=== PATIENT | female | born 1945 | race American Indian/Alaskan Native ===

== ENCOUNTER → 2017-12-08 14:18 | Outpatient (CLI) | payer MEDICARE, OTHER, SELFPAY ==
[2017-12-08 15:03] LABS: Hematocrit 30.3 % (36-46); Hemoglobin 10.2 g/dL (12.0-16.0)
[2017-12-08 15:55] LABS: HEMOLYSIS < 15 (0-50); Iron 66 ug/dL (37-170)
[2017-12-08 16:01] LABS: BUN Creatinine Ratio 13.8 (6-22); Blood Urea Nitrogen 18 mg/dL (7-17); Calcium 8.7 mg/dL (8.4-10.2); Carbon Dioxide 21 mmol/L (22-32); Chloride 106 mmol/L (98-107); Estimated Glomerular Filt Rate 40.3 mL/min (>60); Glucose 131 mg/dL (80-110); HEMOLYSIS < 15 (0-50); Potassium 4.5 mmol/L (3.4-5.1); Sodium 136 mmol/L (137-145)
[2017-12-08 16:05] LABS: Percent Iron Saturation 21 % (15-50); Total Iron Binding Capacity 308 ug/mL (265-497); Transferrin 250 mg/dL (206-381)
[2017-12-08 16:11] LABS: Creatinine Urine Random 55.7 mg/dL
[2017-12-08 16:30] LABS: Protein (Total) Urine Random 308 mg/dL (0-12); Protein Creatinine Ratio Urine 5.52 GRAM/24H
[2017-12-08 16:31] LABS: Ferritin 10.4 ng/mL (11.1-264)
[2017-12-10 13:34] LABS: Parathyroid Hormone Int 55 pg/mL (14-64)
== END ==
PROVIDERS: PCP Family Medicine; Visit Provider Student in an Organized Health Care Education/Training Program
DX: N05.9 Unspecified nephritic syndrome with unspecified morphologic changes (principal); D50.0 Iron deficiency anemia secondary to blood loss (chronic); D64.9 Anemia, unspecified; D60.9 Acquired pure red cell aplasia, unspecified; N25.81 Secondary hyperparathyroidism of renal origin; E87.1 Hypo-osmolality and hyponatremia
CPT/HCPCS: 36415; 80048; 82570; 82728; 83540; 83550; 83970; 84156; 85014; 85018

== ENCOUNTER → 2018-04-08 10:18 | Outpatient (CLI) | payer MEDICARE, OTHER, SELFPAY ==
[2018-04-08 10:41] LABS: Hematocrit 31.4 % (36-46); Hemoglobin 10.5 g/dL (12.0-16.0)
[2018-04-08 11:05] LABS: BUN Creatinine Ratio 10.7 (6-22); Blood Urea Nitrogen 15 mg/dL (7-17); Calcium 9.2 mg/dL (8.4-10.2); Carbon Dioxide 29 mmol/L (22-32); Chloride 105 mmol/L (98-107); Glucose 156 mg/dL (80-110); HEMOLYSIS < 15 (0-50); Potassium 4.4 mmol/L (3.4-5.1); Sodium 140 mmol/L (137-145)
[2018-04-08 11:12] LABS: Creatinine Urine Random 112.6 mg/dL; HEMOLYSIS < 15 (0-50); Iron 22 ug/dL (37-170)
[2018-04-08 11:22] LABS: Percent Iron Saturation 7 % (15-50); Protein (Total) Urine Random 261 mg/dL (0-12); Protein Creatinine Ratio Urine 2.31 GRAM/24H; Total Iron Binding Capacity 310 ug/dL (265-497); Transferrin 267 mg/dL (206-381)
[2018-04-08 11:36] LABS: Ferritin 19.6 ng/mL (11.1-264)
== END ==
PROVIDERS: PCP Family Medicine; Visit Provider Physician Assistant
DX: E11.22 Type 2 diabetes mellitus with diabetic chronic kidney disease (principal); N18.3 Chronic kidney disease, stage 3 (moderate)
CPT/HCPCS: 36415; 80048; 82570; 82728; 83540; 83550; 84156; 85014; 85018

== ENCOUNTER 2018-06-14 22:44 | Emergency (ER) | payer MEDICARE, MEDICAID, OTHER, SELFPAY ==
--- NOTE | 2018-06-14 22:45 | DI.RAD.S_ITS ---
PROCEDURE: XR CHEST 1V INDICATIONS: found down, altered mental status TECHNIQUE: One view of the chest was acquired. COMPARISON: [facility], , CHEST 1 VIEW, 10/30/2014, 6:23. FINDINGS: Surgical changes and devices: None. Lungs and pleura: No pleural effusions or pneumothorax. Increased opacity in right infrahilar region is seen suggestive of small infrahilar infiltrate/atelectasis. Mediastinum: Mediastinal contours appear normal. Heart size is enlarged. Bones and chest wall: No suspicious bony lesions. Overlying soft tissues appear unremarkable. IMPRESSION: Small right infrahilar infiltrate/atelectasis. Dictated by: Jeovanny Luevano M.D. on 06/15/2018 at 8:59 Approved by: Jeovanny Luevano M.D. on 06/15/2018 at 9:00
--- NOTE | 2018-06-14 22:45 | DI.CT.S_ITS ---
PROCEDURE: CT HEAD/BRAIN WO CON INDICATIONS: altered mental status, found down TECHNIQUE: Noncontrast 4.5 mm thick angled axial sections acquired from the foramen magnum to the vertex, with coronal and sagittal reformats. For radiation dose reduction, the following was used: automated exposure control, adjustment of mA and/or kV according to patient size. COMPARISON: [facility], CT, HEAD WITHOUT CONTRAST, 03/11/2016, 13:21. FINDINGS: Image quality: Excellent. CSF spaces: Basal cisterns are patent. No extra-axial fluid collections. The ventricles are symmetric in size and shape. Brain: There is a 4.3 x 2.4 x 3.1 cm acute intraparenchymal hemorrhage involving the right putamen/right stewart radiata. There is mild local mass effect associated with the acute bleed with minimal, approximately 1-2 mm of [id number] midline shift. There is cerebral volume loss for age, with resultant ventricular and sulcal prominence. There are periventricular and deep white matter chronic small vessel ischemic changes. There is intracranial internal carotid artery and vertebral artery atherosclerosis. Skull and face: Calvarium and visualized facial bones appear intact, without suspicious lesions. Sinuses: Mucosal thickening noted throughout the paranasal sinuses. Scattered air-fluid levels noted in the paranasal sinuses. mastoids are clear. IMPRESSION: 1. 4.3 x 2.4 x 3.1 cm acute parenchymal bleed involving the right putamen/stewart radiata. 2. Mild local mass effect associated with the right-sided parenchymal hematoma with minimal, approximately 1-2 mm of right to left midline shift. 3. Pansinusitis. 4. Critical test results telephoned to Dr. Wallace on 06/14/2018 at 1101 hrs. PST. Dictated by: Philomena Magana MD, PhD on 06/15/2018 at 7:18 Approved by: Philomena Magana MD, PhD on 06/15/2018 at 7:21
[2018-06-14 22:52] VITALS: BP 165/93; PULSE 122; RESP 18; TEMP 36.1; O2SAT 100
[2018-06-14 22:54] LABS: Add Manual Diff / Slide Review NO; Basophils Percent Auto 0.6 % (0-2); Eosinophils Percent Auto 0.1 % (2-4); Hematocrit 32.3 % (36-46); Hemoglobin 10.8 g/dL (12.0-16.0); Mean Corpuscular HGB Conc 33.5 % (30-36); Mean Corpuscular Volume 86.5 fL (80-100); Monocytes Percent Auto 4.2 % (3-14); Neutrophils Absolute Auto 10000 /uL (3000-5900); Neutrophils Percent Auto 85.1 % (50-75); Platelet Count 313 X10^3/uL (150-400); Red Blood Cell Count 3.74 X10^6/uL (4.0-5.2); Red Cell Distribution Width 13.1 % (11.6-14.8); White Blood Cell Count 11.8 X10^3/uL (4.5-11.0)
[2018-06-14] MEDS: ETOMIDATE 2 MG/ML VIAL 10 MG IV (22:55)
[2018-06-14 23:00] LABS: INR 0.9 (0.9-1.3); Prothrombin Time 10.3 SECONDS (10.1-12.7)
[2018-06-14] MEDS: PROPOFOL 1,000 MG/100 ML VIAL 1.56 MG IV (23:00)
[2018-06-14 23:03] LABS: PTT Partial Thromboplastin Tim 32 SECONDS (26.4-36.2)
[2018-06-14 23:05] LABS: Alanine Aminotransferase 19 IU/L (9-52); Albumin 4.2 g/dL (3.5-5.0); Albumin Globulin Ratio 1.4 (1.0-2.8); Alkaline Phosphatase 74 U/L (38-126); Aspartate Aminotransferase 29 IU/L (14-36); BUN Creatinine Ratio 13.1 (6-22); Bilirubin Total 0.3 mg/dL (0.2-1.3); Blood Urea Nitrogen 17 mg/dL (7-17); Calcium 8.8 mg/dL (8.4-10.2); Carbon Dioxide 16 mmol/L (22-32); Chloride 99 mmol/L (98-107); Estimated Glomerular Filt Rate 40.3 mL/min (>60); Ethanol (ETOH) 44 mg/dL; Globulin 2.9 g/dL (1.7-4.1); Glucose 150 mg/dL (80-110); HEMOLYSIS 16 (0-50); Potassium 3.7 mmol/L (3.4-5.1); Sodium 135 mmol/L (137-145); Total Protein 7.1 g/dL (6.3-8.2)
[2018-06-14 23:10] VITALS: BP 176/85; PULSE 127; RESP 12; O2SAT 100
--- NOTE | 2018-06-14 23:11 | PC.NURSE ---
2255 pt intubated by Internal Combustion Engineer and MD Wallace, equal breath sounds and chest rise appropriate color change co2 secured with tube wharton per RT
--- NOTE | 2018-06-14 23:13 | ED_ITS ---
HPI - Altered Mental Status General Chief Complaint: Neuro Symptoms/Deficit Stated Complaint: Stroke Time Seen by Provider: 06/14/18 22:48 Source: patient and EMS Mode of arrival: EMS Limitations: altered mental status History of Present Illness HPI narrative: This is a 72-year-old female who comes to the emergency department with altered mental status. Patient was found down on the floor by patient's ?caregiver?. Per EMS the caregiver was unable to really give much information. Unknown how long the patient was down. There was information the patient had had alcohol today. He EMS noted that there was a lot of blood in the room. It seemed that it was coming from her nose or mouth but was not actively bleeding. Patient is alert she has been able to communicate with squeeze on the right for EMS. She does follow commands. For EMS she did not have any movement on the left side and has a right lateral gaze. They were unable to get any information about medications. Related Data Allergies Allergy/AdvReac Type Severity Reaction Status Date / Time No Known Drug Allergies Allergy Verified 06/14/18 22:47 Review of Systems Review of Systems unobtainable due to mental status Exam Narrative Exam Narrative: GEN: well nourished, well appearing female, alert, patient appears to be in severe distress. Patient follows commands with squeeze and blinking her eyes. HEENT: Atraumatic, pupils are equal round reactive to light, patient has right lateral gaze, patient has dried blood from the nares and mouth, TMs are clear with no fluid. Throat is clear without any exudates, erythema, tonsillar enlargement or uvular deviation, no significant amount of blood noted in the oropharynx on intubation. HEART: Regular rate and rhythm without murmur, clicks, rubs. Pulses are equal in upper and lower extremities LUNGS:Lungs clear to auscultation, no wheezes, rales, crackles, chest moves symmetrically, patient does have some upper airway congestion of with respirations. ABD:bowel sounds normal, soft, non-tender, no guarding, rebound, rigidity, no masses noted, no hepatosplenomegaly MSCL: Non-tender, no muscle atrophy, muscles strength 5/5 upper and lower extremities, full range of motion NEURO:CN 2-12 intact, sensation normal, patient has very minimal movement on the left upper and lower extremity. She can squeeze my hand on the right, she can also move her foot on command but does not lift her leg or arm. Unable to test for finger, nose finger. Unable to do heel-zuniga. Unable to complete full Initial Vital Signs Initial Vital Signs: Vital Signs Temperature 97.0 F L 06/14/18 22:52 Pulse Rate 122 H 06/14/18 22:52 Respiratory Rate 18 06/14/18 22:52 Blood Pressure 165/93 H 06/14/18 22:52 Pulse Oximetry 100 06/14/18 22:52 Procedures Intubation Time out performed: Yes sedative: Etomidate Mg Given: 10 paralytic: Succinylcholine Mg Given: 150 Laryngoscope: fiber optic video scope ET Tube Size: 7 ET Tube Uncuffed: Yes Tube Secured Depth (cm): 20 Tube Secured Location: teeth Tube Placement Confirmation: Visualized tube passing through cords, Equal breath sounds bilaterally, No breath sounds over epigastrium, Confirmation by capnometry and Chest Xray (ETT tube high, repositioned. Repeat CXR ordered after reposition.) Patient Tolerated Procedure: Well Intubation Complications: other (hypertension during intubation) Scores GCS [place] coma scale eye opening: Spontaneous [place] coma scale verbal response: None [place] coma scale motor response: Obey commands [place] coma scale total score: 11 NIH Stroke Scale Level of Conciousness: Alert, keenly responsive Ask month/age: Answers neither question correctly, aphasic, stuporous, coma Open/close eyes, close hand: Performs both tasks correctly Best gaze horizontal: Forced deviation or total gaze paresis not overcome Left arm drift: No movement Right arm drift: No effort against gravity Left leg drift: No movement Right leg drift: Some effort against gravity, cannot maintain, drifts down to bed Best language: Mute, global aphasia Course Orders Ordered: ED Orders 06/14/18 22:30 Complete Blood Count AUTO DIFF Stat Comprehensive Metabolic Panel Stat Ethanol (ETOH) Stat Partial Thromboplastin Time Stat Prothrombin Time INR Stat Troponin I Stat 06/14/18 22:45 CT head/brain wo con Stat XR chest 1V Stat EKG-12 Lead Stat Discontinued Medications Etomidate (Amidate) 10 mg IV NOW ONE Stop: 06/14/18 23:05 Last Admin: 06/14/18 22:55 Dose: 10 mg Sodium Chloride (Normal Saline 0.9%) 1,000 mls @ 150 mls/hr IV CONT MIL Last Infusion: 06/15/18 00:26 Dose: 0 mls/hr Admin: 06/14/18 23:29 Dose: 150 mls/hr Propofol (Propofol) 1,000 mg in 100 mls @ 1.56 mls/hr IV TITRATE MIL; Protocol Last Titration: 06/15/18 00:02 Dose: 50 mcg/kg/min, 15.6 mls/hr Titration: 06/14/18 23:54 Dose: 40 mcg/kg/min, 12.48 mls/hr Titration: 06/14/18 23:38 Dose: 30 mcg/kg/min, 9.36 mls/hr Titration: 06/14/18 23:31 Dose: 20 mcg/kg/min, 6.24 mls/hr Titration: 06/14/18 23:10 Dose: 10 mcg/kg/min, 3.12 mls/hr Admin: 06/14/18 23:00 Dose: 5 mcg/kg/min, 1.56 mls/hr Morphine Sulfate (Morphine) 4 mg IV NOW ONE Stop: 06/14/18 23:55 Last Admin: 06/15/18 00:01 Dose: 4 mg Morphine Sulfate (Morphine Sulfate) 4 mg IV NOW ONE Stop: 06/15/18 00:22 Last Admin: 06/15/18 00:24 Dose: 4 mg Succinylcholine Chloride (Quelicin) 150 mg IV TITRATE MIL Last Admin: 06/14/18 23:30 Dose: 150 mg Vital Signs - 8 hr 06/14/18 22:52 06/14/18 23:10 06/14/18 23:20 Temperature 97.0 F L Pulse Rate 122 H 127 H 111 H Respiratory Rate 18 12 16 Blood Pressure 165/93 H Blood Pressure [Right Arm] 176/85 H 200/97 H Pulse Oximetry 100 100 100 06/14/18 23:30 06/14/18 23:53 06/15/18 00:14 Temperature Pulse Rate 133 H 96 H 105 H Respiratory Rate 14 14 14 Blood Pressure Blood Pressure [Right Arm] 155/96 H 142/108 H Pulse Oximetry 100 100 MDM - Altered Mental Status Lab Data Attestation: I reviewed the patient's lab results. Result diagrams: 06/14/18 22:30 06/14/18 22:30 Lab Results 06/14/18 06/14/18 06/14/18 Range/Units 22:30 22:30 22:30 WBC 11.8 H (4.5-11.0) X10^3/uL RBC 3.74 L (4.0-5.2) X10^6/uL Hgb 10.8 L (12.0-16.0) g/dL Hct 32.3 L (36-46) % MCV 86.5 (80-100) fL MCH 29.0 (26-34) PG MCHC 33.5 (30-36) % RDW 13.1 (11.6-14.8) % Plt Count 313 (150-400) X10^3/uL Neut % (Auto) 85.1 H (50-75) % Lymph % (Auto) 10.0 L (25-40) % [place] % (Auto) 4.2 (3-14) % Eos % (Auto) 0.1 L (2-4) % Baso % (Auto) 0.6 (0-2) % Neut # (Auto) 00277 H (8587-7898) /uL PT 10.3 (10.1-12.7) SECONDS INR 0.9 (0.9-1.3) APTT 32 (26.4-36.2) SECONDS Sodium 135 L (137-145) mmol/L Potassium 3.7 (3.4-5.1) mmol/L Chloride 99 (98-107) mmol/L Carbon Dioxide 16 L (22-32) mmol/L BUN 17 (7-17) mg/dL Creatinine 1.30 H (0.52-1.04) mg/dL Estimated GFR 40.3 L (>60) mL/min BUN/Creatinine Ratio 13.1 (6-22) Glucose 150 H (80-110) mg/dL Calcium 8.8 (8.4-10.2) mg/dL Total Bilirubin 0.3 (0.2-1.3) mg/dL AST 29 (14-36) IU/L ALT 19 (9-52) IU/L Alkaline Phosphatase 74 (38-126) U/L Troponin I 0.027 (0.01-0.034) ng/mL Total Protein 7.1 (6.3-8.2) g/dL Albumin 4.2 (3.5-5.0) g/dL Globulin 2.9 (1.7-4.1) g/dL Albumin/Globulin Ratio 1.4 (1.0-2.8) Ethyl Alcohol 44 mg/dL Point of Care Testing Glucose POC [address] scan - head: Radiologist's impression: Lobulated hyperdensity in the right basal ganglia measuring 2.4 x 4.3 x 2.9 cm believed to represent intraparenchymal hemorrhage with a rim of surrounding edema causing effacement of the occipital horn of the right lateral ventricle and the right sylvian fissure with some sulcal effacement of the right temporal and right parietal lobes. No midline shift. No extension of hemorrhage into the ventricular system is identified. Mild to moderate age-related atrophic change. Mild moderate age-related ischemic demyelination of the white matter. Pansinusitis indeterminate chronicity. Chest x-ray: Attestation: I personally reviewed and interpreted this imaging study as follows: My impression: Chest x-ray shows no infiltrate, no pulmonary edema. Patient's ET tube is very superior. ECG Data Attestation: I personally reviewed and interpreted this ECG as follows: Interpretation: Sinus tachycardia with a rate of 108, P are 148, QRS of 84 and QTC of 415. No ST elevation. MDM Narrative Medical decision making narrative: Patient intubated as she was not adequately protecting airway. Did ask patient to squeeze my hand if okay for intubation and she did. Patient's CT shows an intraparenchymal hemorrhage. Patient's GCS is 11 but she has upper airway congestion and does not appear to be protecting her airway appropriately. Patient did give permission as best she could for intubation. Patient was intubated here in the emergency department without event. ET tube is high and was advanced. Patient's son Kiet shea is present but does not know much about her medical history other than she has had several strokes. He does not know if she is on any blood thinners, he is not sure if she has any allergies but does not think so. He has another brother that helps make medical decisions with him. Spoke with Dr. Moura from [facility] plan for transfer. Dr. Moura accepts. Goal of systolic blood pressure less than 160 can start with labetalol pushes and if this is not adequate a narcotic pain drip can be started or sent with the airlift. We did review patient's labs including coags which were negative. Patient had a noncontrast CT. We discussed that was unclear if this was stroke versus traumatic bleed. Critical Care Time Critical Care Time: Yes Total Critical Care Time: 75 Attestation: The high probability of a clinically significant, sudden or life threatening deterioration of the [neurologic, cardiac, respiratory] system(s) required my full and direct attention, intervention and personal management. The aggregate critical care time was [75] minutes. This time is in addition to time spent performing reported procedures but includes the following: xData Review and interpretation [x] Patient assessment and monitoring of vital signs [x] Documentation [x] Medication orders and management Discharge Plan Departure Patient Disposition: [facility] Clinical Impression: Intraparenchymal hemorrhage of brain, Acute respiratory distress Discharge Date/Time: 06/15/18 00:27 Interventions: ED Discharge Assessment Last Done: 06/15/18 00:27
[2018-06-14 23:16] LABS: Troponin I 0.027 ng/mL (0.01-0.034)
[2018-06-14 23:20] VITALS: BP 200/97; PULSE 111; RESP 16; O2SAT 100
[2018-06-14] MEDS: SODIUM CHLORIDE 0.9% 1,000 ML 150 ML IV (23:29)
[2018-06-14 23:30] VITALS: PULSE 133; RESP 14; O2SAT 100
[2018-06-14] MEDS: SUCCINYLCHOLINE 200 MG/10 ML VIAL 150 MG IV (23:30)
[2018-06-14 23:53] VITALS: BP 155/96; PULSE 96; RESP 14; O2SAT 100
[2018-06-14 23:59] VITALS: BP 155/92; PULSE 111; RESP 14; O2SAT 100
[2018-06-15] MEDS: MORPHINE 4 MG/ML INJ IV (00:01)
[2018-06-15 00:14] VITALS: BP 142/108; PULSE 105; RESP 14; O2SAT 100
[2018-06-15] MEDS: MORPHINE 5 MG/ML INJ 4 MG IV (00:24)
== END 2018-06-15 00:27 | disposition short-term general hospital (02) ==
PROVIDERS: Emergency Provider Emergency Medicine; Family Provider Family Medicine; PCP Family Medicine
DX: I61.9 Nontraumatic intracerebral hemorrhage, unspecified (principal); R06.03 Acute respiratory distress
CPT/HCPCS: 31500; 70450; 71045; 80053; 80320; 82962; 84484; 85025; 85610; 85730; 93005; 93010; 94770; 94799; 96365; 96375; 96376; 99285; 99291; J0330; J2270; J2704